=== PATIENT | female | born 1985 | race Caucasian/White ===

== ENCOUNTER 2016-10-01 18:05 | Emergency (ER) | payer BC ==
[~2016-10-01] VITALS: Ht 157.5 cm; Wt 64.6 kg
[2016-10-01 20:08] LABS: UA SPECIFIC GRAVITY <=1.005 (1.005-1.035); microscopic required? YES; urine erythrocyte NEGATIVE (NEGATIVE)
[2016-10-01 21:52] VITALS: BP 115/74
== END 2016-10-01 21:52 | disposition home or self-care (01) ==
LOC: ED 18:05
PROVIDERS: Emergency Medicine
DX: R10.31 Right lower quadrant pain (principal); N39.0 Urinary tract infection, site not specified; N76.0 Acute vaginitis; B96.89 Other specified bacterial agents as the cause of diseases classified elsewhere
CPT/HCPCS: J0696